=== PATIENT | male | born 1935 | race Caucasian/White ===

== ENCOUNTER 2019-01-07 19:51 | Emergency (ER) | payer MEDICARE ==
--- NOTE | 2019-01-07 20:15 | Emergency Department Record ---
History of Present Illness - General Chief complaint: Male Urogenital Problem Stated complaint: UNABLE TO URINATE Time Seen by Provider: 01/07/19 20:08 Source: Patient Mode of Arrival: Ambulatory Limitations: No limitations - History of Present Illness Initial comments: 83 yo male presents unable to urinate. He had outpatient back surgery today. He did urinate after surgery. No new weakness or the legs. He had anesthesia and [place]. No fever. His post op pain is controlled. His back is much better. He last voided fully prior to 4pm. He voided a small amount just at arrival -: Hour(s) Location: Penis Radiation: None Severity: Moderate Quality: Aching Consistency: Constant Improves with: None Worsens with: Other (Unable to urinate) Recent surgery (This AM) Reports: Denies other symptoms - Related Data Home Medications Medication Instructions Recorded Confirmed Last Taken Meloxicam 7.5 mg PO DAILY 01/07/19 01/07/19 Unknown Previous Rx's Medication Instructions Recorded Cephalexin [Keflex] 500 mg PO TID #21 cap 01/07/19 Allergies Allergy/AdvReac Type Severity Reaction Status Date / Time No Known Drug Allergies Allergy Verified 01/07/19 20:11 Review of Systems Constitutional: Denies: Chills, Fever, Malaise, Weakness Eyes: Denies: Eye discharge ENT: Denies: Congestion, Throat pain Respiratory: Denies: Cough Cardiovascular: Denies: Chest pain, Palpitations, Syncope Endocrine: Denies: Fatigue Gastrointestinal: Denies: Abdominal pain, Diarrhea, Nausea, Vomiting Genitourinary: Reports: As per HPI, Retention. Denies: Frequency, Hematuria, Incontinence Musculoskeletal: Reports: Back pain Skin: Denies: Bruising, Change in color, Rash Neurological: Denies: Headache Psychiatric: Denies: Anxiety Hematological/Lymphatic: Denies: Easy bleeding, Easy bruising Past Medical History - SOCIAL HISTORY Smoking Status: Never smoker Alcohol Use: None Drug Use: None - RESPIRATORY Hx Respiratory Disorders: No - CARDIOVASCULAR Hx Cardio Disorders: No - NEURO Hx Neuro Disorders: No - GI Hx GI Disorders: No - Hx Genitourinary Disorders: No - ENDOCRINE Hx Endocrine Disorders: No - MUSCULOSKELETAL Hx Musculoskeletal Disorders: No - PSYCH Hx Psych Problems: No - HEMATOLOGY/ONCOLOGY Hx Hematology/Oncology Disorders: No Family Medical History Any Significant Family History?: No Family Hx Comment (NOT TO BE USED IN PLACE OF ITEMS BELOW): denies Physical Exam - General General Appearance: Alert, Oriented x3, Cooperative, No acute distress - Head Head exam: Atraumatic, Normal inspection - Eye Eye exam: Normal appearance - ENT ENT exam: Normal exam, Mucous membranes moist Ear exam: Normal external inspection Nasal Exam: Normal inspection Mouth exam: Normal external inspection - Neck Neck exam: Normal inspection - Respiratory Respiratory exam: Normal lung sounds bilaterally. negative: Respiratory dis tress - Cardiovascular Cardiovascular Exam: Regular rate, Normal rhythm, Normal heart sounds - GI/Abdominal GI/Abdominal exam: Soft, Tenderness (tender in the S/P area) - Extremities Extremities exam: Normal inspection - Back Back exam: Denies: CVA tenderness (R), CVA tenderness (L) - Neurological Neurological exam: Alert, Oriented X3 - Psychiatric Psychiatric exam: Normal affect, Normal mood - Skin Skin exam: Dry, Intact, Normal color, Warm Course Vital Signs 01/07/19 20:08 Temperature 98 F Pulse Rate [ 79 Pulse Ox Probe] Respiratory 20 Rate Blood Pressure 120/81 [Right Arm] Pulse Ox 94 L - Reevaluation(s) Reevaluation #1: 01/07/19 20:16 The patient was seen and examined Bedside bladder scan ordered He is steady on his feet, no weakness, no neurologic abnormalities on examination. 01/07/19 20:17 01/07/19 20:42 Patient unable to empty bladder Sauceda will be placed. 01/07/19 21:26 The sauceda catheter was placed About 1 liter was produced He will be supplied with a leg bag and urology referral 01/07/19 22:01 At discharge he had complete relief of his symptoms He will call Dr Dias in the morning for follow up He has very steady gate. No complaints with the sauceda tolerating it well. Disposition Disposition: Discharge Clinical Impression: Urinary retention Disposition: Home, Self-Care Condition: (1) Good Instructions: Urinary Retention in Men (ED) Additional Instructions: Return to the ED if you are unable to void, pain, fever or any other concerns Call Dr Dias tomorrow for an appointment to discuss when to remove the catheter Return to the ER if you have problems with the catheter or the leg bag Take the antibiotic as directed Prescriptions: Cephalexin [Keflex] 500 mg PO TID #21 cap Referrals: Nickolas Sprague M.D. [MEDICAL DOCTOR] - [facility] [Provider Group] Forms: Patient Portal Access Time of Disposition: 21:31 Quality - Quality Measures Quality Measures: N/A - Blood Pressure Screening Does Patient Have Any of the Following: No Blood Pressure Classification: Pre-Hypertensive BP Reading Systolic Measurement: 130 Diastolic Measurement: 82 Screening for High Blood Pressure: < Pre-Hypertensive BP, F/U Documented > [[id number]] Pre-Hypertensive Follow-up Interventions: Referral to alternative/primary care provider.
[2019-01-07 20:19] LABS: URINE APPEARANCE CLOUDY; URINE BILIRUBIN NEGATIVE (NEGATIVE); URINE BLOOD TRACE-I (NEGATIVE); URINE COLOR YELLOW; URINE GLUCOSE (UA) NEGATIVE (NEGATIVE); URINE KETONE NEGATIVE (NEGATIVE); URINE LEUKOCYTE ESTERASE NEGATIVE (NEGATIVE); URINE NITRITE NEGATIVE (NEGATIVE); URINE PROTEIN NEGATIVE (NEGATIVE); URINE UROBILINOGEN 0.2 E.U./dL (0.20 - 1.00)
[2019-01-07 20:35] LABS: URINE BACTERIA NONE SEEN; URINE EPITHELIAL CELLS 0 - 2 (FEW); URINE RBC NONE SEEN (NONE SEEN); URINE WBC NONE SEEN (0-2/hpf)
[2019-01-07] MEDS: CEPHALEXIN 500 MG CAPSULE PO STA (21:48)
== END 2019-01-07 21:54 | disposition home or self-care (01) ==
LOC: ER 19:51
DX: R33.9 Retention of urine, unspecified (principal); R39.198 Other difficulties with micturition
CPT/HCPCS: 81001; 99284